=== PATIENT | female | born 2000 | race Caucasian/White ===

== ENCOUNTER 2021-12-17 16:57 | Emergency (ER) | payer MEDICAID ==
[~2021-12-17] VITALS: Ht 152.4 cm; Wt 52.6 kg
[2021-12-17 17:08] VITALS: BP 100/59
--- NOTE | 2021-12-17 19:12 | NUR ---
DR LOPEZ ATTEMPTED TO BRING PT BACK, NOT FOUND IN LOBBY/OUTSIDE
--- NOTE | 2021-12-17 19:12 | NUR ---
CALLED NO SHOW IN LOBBY
--- NOTE | 2021-12-17 19:34 | NUR ---
Patient takent to chair C.
--- NOTE | 2021-12-17 19:35 | NUR ---
Dr. James examining patient.
[2021-12-17] MEDS ORDERED: ONDANSETRON 4 MG/2 ML VIAL IVP ONE (19:40)
[2021-12-17] MEDS ORDERED: NACL 0.9% 1,000 ML IV ONE (19:40)
--- NOTE | 2021-12-17 19:48 | NUR ---
Urine sample collected and sent to lab.
--- NOTE | 2021-12-17 19:54 | NUR ---
Patient ambulated to bed 7.
--- NOTE | 2021-12-17 19:54 | NUR ---
PT MOVED TO BED #7
[2021-12-17 19:59] LABS: APPEARANCE,URINE HAZY (CLEAR); BILIRUBIN,URINE NEGATIVE (NEGATIVE); BLOOD, URINE NEGATIVE (NEGATIVE); COLOR,URINE AMBER (YELLOW); LEUKOCYTE ESTERASE ,URINE 1+ (NEGATIVE); NITRITE, URINE POSITIVE (NEGATIVE); PH,URINE 6.5 (5.0-9.0); UGLUCOSE NEGATIVE (NEGATIVE)
[2021-12-17 20:17] LABS: OTHER CASTS, URINE None Seen /LPF (None Seen)
[2021-12-17 21:02] VITALS: BP 106/62
[2021-12-17] MEDS ORDERED: cefTRIAXone 1,000 MG VIAL ONE (21:31)
[2021-12-17] MEDS ORDERED: NITR100C7 PO (21:40)
[2021-12-17] MEDS ORDERED: ONDA-188 SL (21:40)
--- NOTE | 2021-12-17 22:22 | NUR ---
21 Y/O F BIB SELF FOR N/V/ X3 . PT STATES THAT SHE HASNT BEEN ABLE TO DRINK ANYTHING WITHOUT THROWING UP. PT STATES NO DIARRHEA. DENIES N/V/F. PT STATES SHE IS . 8 WEEKS NO PMH . NKA
--- NOTE | 2021-12-17 22:30 | NUR ---
Patient discharged with v/s stable. Written and verbal after care instructions given and explained. Patient alert, oriented and verbalized understanding of instructions. Ambulatory with steady gait. All questions addressed prior to discharge. ID band removed. Patient advised to follow up with PMD. Rx of MACROBID & ZOFRAN given. Patient educated on indication of medication including possible reaction and side effects. Opportunity to ask questions provided and answered.
--- NOTE | 2021-12-20 10:20 | NUR ---
LATE ENTRY. 0.9% NS BOLUS ENDED AT 2230 ON 12/17/21.
--- NOTE | 2021-12-20 15:14 | NUR ---
LATE ENTRY. RECEIVED POSITIVE URINE CULTURE RESULTS. DISCREPANCY FORMED GIVEN AND SIGNED BY DR CORDOVA. TREATMENT APPROPRIATE. FORM PLACED IN BINDER.
== END 2021-12-17 22:28 | disposition home or self-care (01) ==
LOC: MED 16:57
DX: O23.41 Unspecified infection of urinary tract in pregnancy, first trimester (principal); O21.8 Other vomiting complicating pregnancy; Z3A.08 8 weeks gestation of pregnancy; Z79.899 Other long term (current) drug therapy
CPT/HCPCS: 81001; 87086; 96361; 96365; 96375; 99284; J0696; J2405; J7030

== ENCOUNTER 2022-02-06 18:19 | Emergency (ER) | payer SELFPAY ==
[~2022-02-06] VITALS: Ht 152.4 cm; Wt 49.9 kg
[~2022-02-06 18:19] MED LIST: NITR100C7 PO; ONDA-188 SL
[2022-02-06 18:34] VITALS: BP 108/67
--- NOTE | 2022-02-06 19:29 | NUR ---
pt walked to bed 6
--- NOTE | 2022-02-06 19:43 | NUR ---
L&D RN AT BEDSIDE FOR T
--- NOTE | 2022-02-06 19:44 | NUR ---
21 yr old female brought in by self with chief complaint of vaginal bleeding xtoday. per patient she urinated blood earlier today and stated she c/o back pain. lmp 10/20/21. . OB Appoinment tomorrow. Pt not bleeding at this time. denies pmhx, rx nka
--- NOTE | 2022-02-06 19:54 | NUR ---
LAB AT BEDSIDE
--- NOTE | 2022-02-06 20:04 | NUR ---
Ultrasound at bedside.
[2022-02-06 20:08] LABS: BILIRUBIN,URINE NEGATIVE (NEGATIVE); BLOOD, URINE 2+ (NEGATIVE); COLOR,URINE YELLOW (YELLOW); LEUKOCYTE ESTERASE ,URINE NEGATIVE (NEGATIVE); NITRITE, URINE NEGATIVE (NEGATIVE); UGLUCOSE NEGATIVE (NEGATIVE)
[2022-02-06 20:08] LABS: BASOPHILS # (AUTO) 0.1 K/uL (0.00-0.22); BASOPHILS % (AUTO) 1.1 % (0.0-2.0); EOSINOPHILS # (AUTO) 0.1 K/uL (0-0.4); EOSINOPHILS % (AUTO) 1.3 % (0.0-4.0); HEMATOCRIT 34.4 % (36-48); LYMPHOCYTES # (AUTO) 2.7 K/uL (2.5-16.5); LYMPHOCYTES % (AUTO) 34.7 % (20.5-51.1); MEAN CORPUSCULAR HEMOGLOBIN 30 pg (27-31); MEAN CORPUSCULAR HGB CONC 35 g/dL (33-37); MEAN CORPUSCULAR VOLUME 85.1 fL (80-94); MONOCYTES # (AUTO) 0.6 K/uL (0.8-1.0); MONOCYTES % (AUTO) 7.5 % (1.7-9.3); NEUTROPHILS # (AUTO) 4.3 K/uL (1.8-7.7); NEUTROPHILS % (AUTO) 55.4 % (42.2-75.2); PLATELET COUNT (AUTO) 217 K/uL (140-450); RED BLOOD CELL COUNT(AUTO) 4.04 MIL/uL (4.20-5.40); RED CELL DISTRIBUTION WIDTH 13.9 % (11.6-13.7); WHITE BLOOD COUNT (AUTO) 7.7 K/uL (4.8-10.8)
[2022-02-06 20:36] LABS: APPEARANCE,URINE HAZY (CLEAR); RBC,URINE 0-5 /HPF (0-5); WBC,URINE 80-100 /HPF (0-5)
--- NOTE | 2022-02-06 20:54 | NUR ---
Dr. Harrell examining patient.
[2022-02-06] MEDS ORDERED: NITR100C7 PO (21:53)
[2022-02-06 22:10] VITALS: BP 115/73
--- NOTE | 2022-02-06 22:10 | NUR ---
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 LMP 10/20. . PT IS HAVING MISCARRIAGE, FAMILY MEMBER IS AT THE BEDSIDE
--- NOTE | 2022-02-06 22:13 | NUR ---
Patient discharged with v/s stable BY ERMD. Written and verbal after care instructions given and explained. Patient alert, oriented and verbalized understanding of instructions. Ambulatory with steady gait. All questions addressed prior to discharge. ID band removed. Patient advised to follow up with PMD. Rx of MACROBID 100MG PO, ZOFRAN ODT 4MG PO, given. Patient educated on indication of medication including possible reaction and side effects. Opportunity to ask questions provided and answered.
== END 2022-02-06 22:13 | disposition home or self-care (01) ==
LOC: MED 18:19
DX: O03.9 Complete or unspecified spontaneous abortion without complication (principal); O23.42 Unspecified infection of urinary tract in pregnancy, second trimester; N39.0 Urinary tract infection, site not specified; Z3A.14 14 weeks gestation of pregnancy
CPT/HCPCS: 36415; 76817; 81001; 81025; 84702; 85025; 86900; 86901; 87086; 99284; Q0092

== ENCOUNTER 2022-02-20 08:32 | Emergency (ER) | payer MEDICAID ==
[~2022-02-20] VITALS: Ht 147.3 cm; Wt 54.9 kg
[2022-02-20 08:39] VITALS: BP 115/64
--- NOTE | 2022-02-20 08:42 | NUR ---
PT AMBULATED TO BED 3 WITH STEADY GAIT
--- NOTE | 2022-02-20 08:43 | NUR ---
PT AMBULATED TO BATHROOM
--- NOTE | 2022-02-20 09:37 | NUR ---
DR. CLOUD BEDSIDE TO ASSESS PT.
[2022-02-20] MEDS ORDERED: KETOROLAC 60 MG/2 ML VIAL IM ONE (10:05)
[2022-02-20 10:48] LABS: APPEARANCE,URINE SL CLOUDY (CLEAR); BILIRUBIN,URINE NEGATIVE (NEGATIVE); BLOOD, URINE 3+ (NEGATIVE); COLOR,URINE RED (YELLOW); LEUKOCYTE ESTERASE ,URINE NEGATIVE (NEGATIVE); NITRITE, URINE NEGATIVE (NEGATIVE); UGLUCOSE NEGATIVE (NEGATIVE)
[2022-02-20 10:55] LABS: OTHER CASTS, URINE None Seen /LPF (None Seen); WBC,URINE 0-5 /HPF (0-5)
[2022-02-20] MEDS ORDERED: MISO200T PO (13:39)
[2022-02-20] MEDS ORDERED: IBUP-2213 PO (13:39)
--- NOTE | 2022-02-20 14:03 | NUR ---
Note anandamaria antonia in EDM - 02/20/22 at 1529 by [id number] PT WAS ASSESSED BY DR. SIMIN ALFARO D/Adarsh'aNnci CLARK. D/C INSTRUCTION WITH ALL TESTS RESULT GIVEN TO PT. STUDENT NURSE WAS ASKED QUILTING MACHINE OPERATOR TO EXPLAINED TO PT. PT VERBALIZED UNDERSTANDING. PT WALKED OUT ED IN STEADY GAIT.
--- NOTE | 2022-02-20 14:04 | NUR ---
Patient discharged with v/s stable. Written and verbal after care instructions given and explained. Patient verbalized understanding. Ambulatory with steady gait. All questions addressed prior to discharge. Advised to follow up with PMD.
[2022-02-20 14:05] VITALS: BP 110/57
== END 2022-02-20 14:05 | disposition home or self-care (01) ==
LOC: MED 08:32
DX: O03.9 Complete or unspecified spontaneous abortion without complication (principal); Z79.899 Other long term (current) drug therapy
CPT/HCPCS: 36415; 76817; 81001; 81025; 84702; 96372; 99284; J1885; Q0092

== ENCOUNTER 2023-03-29 20:13 | Emergency (ER) | payer OTHER ==
[~2023-03-29] VITALS: Ht 152.4 cm; Wt 60.8 kg
[~2023-03-29 20:13] MED LIST changes: +IBUP-2213 PO; +MISO200T PO
[2023-03-29 20:50] VITALS: BP 101/72; PULSE 72; RESP 18; TEMP 97.6; O2SAT 99
[2023-03-29 21:31] LABS: APPEARANCE,URINE CLEAR (CLEAR); BILIRUBIN,URINE NEGATIVE (NEGATIVE); BLOOD, URINE NEGATIVE (NEGATIVE); COLOR,URINE YELLOW (YELLOW); LEUKOCYTE ESTERASE ,URINE NEGATIVE (NEGATIVE); NITRITE, URINE NEGATIVE (NEGATIVE); PROTEIN,URINE NEGATIVE (NEGATIVE); UGLUCOSE NEGATIVE (NEGATIVE); UROBILINOGEN,URINE 0.2 EU/dL (0.2 - 1)
[2023-03-30 00:08] LABS: BASOPHILS % (AUTO) 0.7 % (0.0-2.0); EOSINOPHILS # (AUTO) 0.2 K/uL (0-0.4); EOSINOPHILS % (AUTO) 2.6 % (0.0-4.0); HEMATOCRIT 39.4 % (36-48); HEMOGLOBIN 13.6 g/dL (12.0-16.0); LYMPHOCYTES # (AUTO) 3.6 K/uL (2.5-16.5); LYMPHOCYTES % (AUTO) 48.5 % (20.5-51.1); MEAN CORPUSCULAR HEMOGLOBIN 29 pg (27-31); MEAN CORPUSCULAR HGB CONC 35 g/dL (33-37); MEAN CORPUSCULAR VOLUME 84.5 fL (80-94); MONOCYTES # (AUTO) 0.5 K/uL (0.8-1.0); MONOCYTES % (AUTO) 6.9 % (1.7-9.3); NEUTROPHILS # (AUTO) 3.1 K/uL (1.8-7.7); NEUTROPHILS % (AUTO) 41.3 % (42.2-75.2); PLATELET COUNT (AUTO) 204 K/uL (140-450); RED BLOOD CELL COUNT(AUTO) 4.67 MIL/uL (4.20-5.40); RED CELL DISTRIBUTION WIDTH 13.1 % (11.6-13.7); WHITE BLOOD COUNT (AUTO) 7.5 K/uL (4.8-10.8)
[2023-03-30 00:33] LABS: LACTIC ACID 0.7 mmol/L (0.4-2.0)
[2023-03-30 00:43] LABS: ANION GAP 14.8 (8-16); CALCIUM 8.4 mg/dL (8.5-10.1); CARBON DIOXIDE 25.1 mmol/L (21-32); CREATININE 0.6 mg/dL (0.6-1.3); POTASSIUM 3.9 mmol/L (3.5-5.1); TOTAL BILIRUBIN 0.3 mg/dL (0.0-1.0); TOTAL PROTEIN, SERUM 8.1 g/dL (6.4-8.2)
[2023-03-30 00:45] VITALS: O2SAT 99
[2023-03-30 04:04] VITALS: O2SAT 99
[2023-03-30 04:59] VITALS: BP 99/42; PULSE 66; RESP 14; O2SAT 98
[2023-03-30] MEDS ORDERED: METR-435 PO (05:57)
== END 2023-03-30 06:05 | disposition home or self-care (01) ==
LOC: MED 20:13
DX: N76.0 Acute vaginitis (principal); B96.89 Other specified bacterial agents as the cause of diseases classified elsewhere; Z79.899 Other long term (current) drug therapy; Z79.1 Long term (current) use of non-steroidal anti-inflammatories (NSAID); Z79.2 Long term (current) use of antibiotics
CPT/HCPCS: 36415; 80053; 81003; 81025; 83605; 85025; 87040; 87210; 99284

== ENCOUNTER 2023-09-18 09:04 | Emergency (ER) | payer OTHER ==
[~2023-09-18] VITALS: Ht 152.4 cm; Wt 59.0 kg
[~2023-09-18 09:04] MED LIST changes: +METR-435 PO
[2023-09-18 09:17] VITALS: BP 115/70; PULSE 65; RESP 18; TEMP 97.1; O2SAT 98
[2023-09-18 10:42] LABS: APPEARANCE,URINE CLEAR (CLEAR); BILIRUBIN,URINE NEGATIVE (NEGATIVE); BLOOD, URINE 1+ (NEGATIVE); COLOR,URINE YELLOW (YELLOW); LEUKOCYTE ESTERASE ,URINE NEGATIVE (NEGATIVE); NITRITE, URINE NEGATIVE (NEGATIVE); PH,URINE 6.5 (5.0-9.0); PROTEIN,URINE NEGATIVE (NEGATIVE); UGLUCOSE NEGATIVE (NEGATIVE); UROBILINOGEN,URINE 0.2 EU/dL (0.2 - 1)
[2023-09-18 10:43] LABS: BASOPHILS # (AUTO) 0.1 K/uL (0.00-0.22); BASOPHILS % (AUTO) 0.9 % (0.0-2.0); EOSINOPHILS # (AUTO) 0.1 K/uL (0-0.4); EOSINOPHILS % (AUTO) 1.5 % (0.0-4.0); HEMOGLOBIN 13.8 g/dL (12.0-16.0); LYMPHOCYTES # (AUTO) 2.3 K/uL (2.5-16.5); LYMPHOCYTES % (AUTO) 33.5 % (20.5-51.1); MEAN CORPUSCULAR HEMOGLOBIN 30 pg (27-31); MEAN CORPUSCULAR HGB CONC 35 g/dL (33-37); MEAN CORPUSCULAR VOLUME 83.6 fL (80-94); MONOCYTES # (AUTO) 0.4 K/uL (0.8-1.0); MONOCYTES % (AUTO) 5.9 % (1.7-9.3); NEUTROPHILS % (AUTO) 58.2 % (42.2-75.2); PLATELET COUNT (AUTO) 187 K/uL (140-450); RED BLOOD CELL COUNT(AUTO) 4.67 MIL/uL (4.20-5.40); RED CELL DISTRIBUTION WIDTH 12.9 % (11.6-13.7); WHITE BLOOD COUNT (AUTO) 6.8 K/uL (4.8-10.8)
[2023-09-18] MEDS: KETOROLAC 30 MG/ML VIAL IM ONE (10:44)
[2023-09-18 10:46] LABS: BACTERIA,URINE 10-30 (MOD) /HPF (None Seen); MUCUS,URINE 1+ /LPF (None Seen); RBC,URINE 0-5 /HPF (0-5); SQUAMOUS EPITHELIAL CELL,UR 4-10 (MOD) /LPF (0-3 (FEW)); WBC,URINE 0-5 /HPF (0-5)
[2023-09-18 10:49] LABS: ANION GAP 10.8 (8-16); CALCIUM 8.6 mg/dL (8.5-10.1); CREATININE 0.6 mg/dL (0.6-1.3); POTASSIUM 3.8 mmol/L (3.5-5.1)
[2023-09-18 10:54] LABS: ALBUMIN 3.8 g/dL (3.4-5.0); BILIRUBIN,DIRECT 0.1 mg/dL (0.0-0.3); TOTAL BILIRUBIN 0.4 mg/dL (0.0-1.0); TOTAL PROTEIN, SERUM 7.5 g/dL (6.4-8.2)
[2023-09-18] MEDS ORDERED: NAPR-1704 PO (12:17)
[2023-09-18] MEDS ORDERED: CEPH-588 PO (12:17)
[2023-09-18 12:34] VITALS: BP 101/57; PULSE 56; RESP 18; TEMP 98.2; O2SAT 99
== END 2023-09-18 12:34 | disposition home or self-care (01) ==
LOC: MED 09:04
DX: R10.9 Unspecified abdominal pain (principal); M54.50 Low back pain, unspecified; R35.0 Frequency of micturition; N93.9 Abnormal uterine and vaginal bleeding, unspecified; Z79.1 Long term (current) use of non-steroidal anti-inflammatories (NSAID); Z79.899 Other long term (current) drug therapy
CPT/HCPCS: 36415; 76705; 76856; 80048; 80076; 81001; 81025; 85025; 87086; 93976; 96372; 99285; J1885; Q0092

== ENCOUNTER 2024-02-17 16:47 | Emergency (ER) | payer OTHER ==
[~2024-02-17] VITALS: Ht 152.4 cm; Wt 56.7 kg
[~2024-02-17 16:47] MED LIST changes: +CEPH-588 PO; +NAPR-1704 PO
[2024-02-17 17:10] VITALS: BP 128/78; PULSE 113; RESP 18; TEMP 98.8; O2SAT 99
[2024-02-17] MEDS: TRANEXAMIC ACID 1,000 MG/10 ML VIAL MC ONE (18:10)
[2024-02-17] MEDS: LIDOCAINE/EPI 1% 1:100000 20 ML VIAL INJ ONE (18:10)
[2024-02-17] MEDS ORDERED: IBUP-2213 PO (19:14)
== END 2024-02-17 19:21 | disposition home or self-care (01) ==
LOC: MED 16:47
DX: R58 Hemorrhage, not elsewhere classified (principal); Z98.818 Other dental procedure status; Z79.899 Other long term (current) drug therapy
CPT/HCPCS: 96372; 99283; J2001; J3490